=== PATIENT | male | born 1995 | race Caucasian/White ===

== ENCOUNTER 2020-03-10 12:46 | Outpatient (CLI) | payer OTHER ==
--- NOTE | 2020-03-12 10:21 | MRI Report ---
PROCEDURE: Lumbar Spine W/O INDICATIONS: LUMBAR RADICULOPATHY TECHNIQUE: Noncontrast sagittal T1 spin echo and T2 fast echo, coronal T2, sagittal STIR, axial T1 and T2 fast s pin echo through the lumbar spine. COMPARISON: None. FINDINGS: Image quality: Excellent. Alignment and Curvature: No plain films are available for comparison. Thus, for numbering purposes, 5 lumbar type vertebral bodies will be presumed for the current report. This should be confirmed with plain film correlation prior to any lumbar spinal intervention. There is loss of normal lumbar lordo sis. There is mild grade 1 retrolisthesis of L4 on L5 and L5 on S1. Bone Marrow: Marrow is of normal overall signal. No acute vertebral body compression fractures. Th ere is mild reactive signal within. The endplates adjacent to the L4-L5 and L5-S1 intervertebral disc s. Spinal Cord: Conus medullaris terminates at the lower L1 level. Visualized cord demonstrates normal signal and size. Paraspinous Soft Tissues: No paravertebral masses. T12-L1: Normal in appearance. L1-L2: Normal in appearance. L2-L3: Normal in appearance. L3-L4: Normal in appearance. L4-L5: Mild disc height loss and desiccation. Mild diffuse disc bulge. Mild bilateral facet hypertr ophy. Mild canal stenosis. Mild bilateral foraminal stenosis. L5-S1: Moderate disc height loss and desiccation. Mild diffuse disc bulge with superimposed right p aracentral disc extrusion which extends inferiorly within the lateral recess. Mild bilateral facet hy pertrophy. Mild canal stenosis. Moderate subarticular foraminal stenosis bilaterally. Compression of the right S1 nerve root IMPRESSION: 1. L5-S1 disc extrusion, causing right S1 nerve root compression. Recommend correlation with clinical symptoms to ascertain relevance of this finding. 2. Five lumbar type vertebral bodies were presumed for the purposes of the current report. Correlati on with plainfilms for numbering purposes is recommended prior to any lumbar spinal intervention. Reviewed by: Gautam Jeffries MD on 03/12/2020 9:20 AM RONALD Approved by: Gautam Jeffries MD on 03/12/2020 9:20 AM RONALD Station ID: [id number]
== END 2020-03-10 12:47 | disposition home or self-care (01) ==
LOC: DI 12:46
DX: M51.17 Intervertebral disc disorders with radiculopathy, lumbosacral region (principal)
CPT/HCPCS: 72148